=== PATIENT | male | born 1970 | race Caucasian/White ===

== ENCOUNTER → 2018-11-15 | Outpatient (CLI) | payer OTHER ==
--- NOTE | 2018-11-15 11:37 | KCIC ---
MR of the right shoulder HISTORY: Right shoulder pain posteriorly in recent months. TECHNIQUE: Routine multiplanar sequences are obtained. FINDINGS: Acromioclavicular joint is intact. Signal within the rotator cuff compatible with tendinosis, with mild thickening. Partial-thickness articular side tear of the anterior supraspinatus tendon measures about one third deep. About 6 mm AP diameter. No full-thickness tear or rupture. No evidence of labral tear or para labral cyst. No acute articular cartilage defect. Biceps tendon is intact. No bone destruction or acute fracture. IMPRESSION: Rotator cuff tendinosis. Small partial-thickness articular side tear of the supraspinatus tendon. Electronically signed by: Nixon Hwang MD (11/15/2018 11:34 AM) [id number]
== END | disposition home or self-care (01) ==
LOC: KCIC MRI 10:13
PROVIDERS: ATTEND Family Medicine
DX: M75.101 Unspecified rotator cuff tear or rupture of right shoulder, not specified as traumatic (principal)
CPT/HCPCS: 73221